=== PATIENT | male | born 1935 | race Caucasian/White ===

== ENCOUNTER 2016-07-16 18:52 | Emergency (ER) | payer MEDICARE ==
[2016-07-16 18:58] VITALS: BP 129/65
--- NOTE | 2016-07-16 20:37 | ED Physician Documentation ---
PD HPI URI - Stated complaint Stated Complaint: FEVER - Chief complaint Chief Complaint: General - History obtained from History obtained from: Patient - History of Present Illness Timing - onset: How many days ago (3) Timing duration: Days (3) Timing details: Gradual onset Pain level max: 0 Pain level now: 0 Associated symptoms: Fever (100.3), Chills, Nasal congestion, Rhinorrhea, Dry cough. No: Sinus pain, Sore throat, Hemoptysis, Chest pain, Dyspnea Contributing factors: Travel (visiting from [place]). No: Sick contact Improves by: Rest Worsened by: Activity, Breathing Similar symptoms before: Diagnosis (URI, pneumonia) Recently seen: Not recently seen Review of Systems Constitutional: reports: Fever, Chills Throat: denies: Sore throat Skin: denies: Rash Musculoskeletal: denies: Neck pain, Back pain Neurologic: denies: Headache PD PAST MEDICAL HISTORY - Past Medical History Past Medical History: Yes Neuro: Peripheral neuropathy Other Past Medical History: benign essential tremors - Past Surgical History Past Surgical History: Yes General: Appendectomy - Present Medications Home Medications: Ambulatory Orders Medication Instructions Recorded Confirmed Azithromycin [Zithromax] 250 mg PO DAILY #4 tablet 07/16/16 Benzonatate [Tessalon Perle] 100 mg PO TID PRN #30 capsule 07/16/16 Fenofibrate 160 mg PO DAILY 07/16/16 07/16/16 Gabapentin [Neurontin] 300 mg PO TID 07/16/16 07/16/16 Omeprazole [PriLOSEC] 40 mg PO DAILY 07/16/16 07/16/16 Propranolol [Inderal] 160 mg PO DAILY 07/16/16 07/16/16 Valacyclovir HCl [Valacyclovir] 1,000 mg PO DAILY 07/16/16 07/16/16 - Allergies Allergies/Adverse Reactions: Allergies Allergy/AdvReac Type Severity Reaction Status Date / Time No Known Drug Allergies Allergy Verified 07/16/16 18:58 - Social History Does the pt smoke?: No Smoking Status: Never smoker Does the pt drink ETOH?: Yes Does the pt have substance abuse?: No - Immunizations Immunizations are current?: Yes - POLST Patient has POLST: No PD ED PE NORMAL - Vitals Vital signs reviewed: Yes - General General: Alert and oriented X 3, No acute distress, Well developed/nourished - HEENT HEENT: PERRL, Ears normal, Moist mucous membranes, Other (mild posterior oropharyngeal swelling, no tonsillar exudates. + post nasal drip.) - Neck Neck: Supple, no meningeal sign - Cardiac Cardiac: RRR - Respiratory Respiratory: No respiratory distress, Clear bilaterally - Abdomen Abdomen: Soft, Non tender, Non distended - Derm Derm: Warm and dry, No rash - Neuro Neuro: Alert and oriented X 3 - Psych Psych: Normal mood, Normal affect Results - Vitals Vitals: Vital Signs - 24 hr 07/16/16 18:55 Temperature 37.2 C Heart Rate 68 Respiratory 22 Rate Blood Pressure 129/65 O2 Saturation 95 Oxygen O2 Source Room air - Rads (name of study) cxr Radiology: Prelim report reviewed, EMP read contemporaneously, See rad report ( Mild right base atelectasis/infiltrate. ) PD MEDICAL DECISION MAKING - ED course Complexity details: reviewed results, re-evaluated patient, considered differential, d/w patient, d/w family ED course: Patient is a very well-appearing, nontoxic 81-year-old male who presents to the emergency department with fevers and cough. Appears to have a right basilar infiltrate on x-ray. We will treat for pneumonia. Afebrile here. No hypoxia. Well-appearing, nontoxic. Patient and family counseled regarding signs and symptoms for which I believe and urgent re-evaluation would be necessary. Patient with good understanding of and agreement to plan and is comfortable going home at this time This document was made in part using voice recognition software. While efforts are made to proofread this document, sound alike and grammatical errors may occur. Departure - Departure Disposition: 01 Home, Self Care Clinical Impression: Pneumonia Qualifiers: Pneumonia type: due to unspecified organism Laterality: right Lung location: lower lobe of lung Qualified Code(s): J18.1 - Lobar pneumonia, unspecified organism Condition: Good Instructions: ED Pneumonia Adult Follow-Up: your,doctor in 1 week [Other] Prescriptions: Benzonatate [Tessalon Perle] 100 mg PO TID PRN #30 capsule PRN Reason: Cough Azithromycin [Zithromax] 250 mg PO DAILY #4 tablet Comments: Take all antibiotics until gone. Return if you worsen. You do appear to have a pneumonia on your chest x-ray today. You should start to improve in the next 24-48 hours. Discharge Date/Time: 07/16/16 21:10
--- NOTE | 2016-07-16 20:43 | XRAY Preliminary Report ---
Exam: XR Chest 2 View PA/LAT IMPRESSION: Mild right base atelectasis/infiltrate. [facility] SITE ID: [id number]
--- NOTE | 2016-07-16 20:45 | XRAY Report ---
EXAM: CHEST RADIOGRAPHY EXAM DATE: 07/16/2016 08:26 PM. CLINICAL HISTORY: Fever. Cough. COMPARISON: None. TECHNIQUE: 2 views. FINDINGS: Lungs/Pleura: Streaky opacities at the right base, otherwise no focal opacities evident. No pleural e ffusion. No pneumothorax. Normal volumes. Mediastinum: Heart and mediastinal contours are unremarkable. Other: Mild lower thoracic compression fracture noted, likely chronic. IMPRESSION: Mild right base atelectasis/infiltrate. [facility] Referring Provider Line: [phone] SITE ID: [id number]
[2016-07-16] MEDS ORDERED: AZITHROMYCIN 250 MG TABLET PO STA (20:50)
[2016-07-16] MEDS ORDERED: AZITHROMYCIN 250 MG TABLET PO ONE (21:00)
== END 2016-07-16 21:10 | disposition home or self-care (01) ==
LOC: ED 18:52
DX: J18.9 Pneumonia, unspecified organism (principal); G62.9 Polyneuropathy, unspecified; R25.1 Tremor, unspecified
CPT/HCPCS: 71020; 99283; A9270